=== PATIENT | male | born 1995 | race African-American/Black ===

== ENCOUNTER 2023-07-01 09:07 | Emergency (ER) | payer MEDICAID ==
[~2023-07-01] VITALS: Ht 177.8 cm; Wt 82.0 kg
[~2023-07-01 09:07] MED LIST: HYDR453.3 TOP; LIDO76.56 TP; PHEN51CR24 PR; POLY17PO43 PO
[2023-07-01 09:15] VITALS: O2SAT 100
[2023-07-01] MEDS ORDERED: PHEN51CR24 TP (10:09)
[2023-07-01] MEDS ORDERED: HYDROCODONE/ACETAMINOPHEN 5/325MG TABLET PO ONE (10:15)
[2023-07-01 11:11] VITALS: BP 160/70; PULSE 90; RESP 22; TEMP 97.8
== END 2023-07-01 11:12 | disposition home or self-care (01) ==
LOC: ER 09:07
DX: K64.9 Unspecified hemorrhoids (principal)
CPT/HCPCS: 99283

== ENCOUNTER 2024-01-22 11:53 | Emergency (ER) | payer MEDICAID ==
[~2024-01-22] VITALS: Ht 177.8 cm; Wt 84.0 kg
[~2024-01-22 11:53] MED LIST changes: +PHEN51CR24 TP
[2024-01-22 11:56] VITALS: O2SAT 98
[2024-01-22] MEDS: HYDROCODONE/ACETAMINOPHEN 5/325MG TABLET PO ONE (12:33)
[2024-01-22 12:56] LABS: CHLORIDE 106 mEq/L (98-107); POTASSIUM 4.2 mEq/L (3.5-5.1); SODIUM 139 mEq/L (136-145)
[2024-01-22 12:57] LABS: CARBON DIOXIDE 25 mEq/L (21-32)
[2024-01-22 12:58] LABS: CALCIUM 10.2 mg/dL (8.7-10.4)
[2024-01-22 13:02] LABS: CREATININE 1.2 mg/dL (0.6-1.3); GLUCOSE 101 mg/dL (70-105); UREA NITROGEN BLOOD 8 mg/dL (9-23)
[2024-01-22 13:03] LABS: BASOPHILS % 0.7 % (0.0-2.0); EOSINOPHILS % 0.6 % (0.0-5.0); HEMATOCRIT. 40.8 % (42.0-52.0); HEMOGLOBIN. 13.8 g/dL (14.0-18.0); LYMPHOCYTES % 22.9 % (20.0-50.0); MEAN CORPUSCULAR HEMOGLOBIN 29.5 pg (28.0-32.0); MEAN CORPUSCULAR HGB CONC 33.8 g/dL (31.0-37.0); MEAN CORPUSCULAR VOLUME 87.1 fL (80.0-94.0); MEAN PLATELET VOLUME 8.8 fl (7.4-10.4); MONOCYTES % 7.8 % (2.0-8.0); PLATELET 287 x1000/uL (130-400); RED BLOOD CELL COUNT 4.68 mill/uL (4.7-6.1); RED CELL DISTRIBUTION WIDTH 13.7 % (11.6-14.6); WHITE BLOOD COUNT 6.9 x1000/uL (4.5-11.0)
[2024-01-22] MEDS ORDERED: HYDR453.3 TOP (15:10)
[2024-01-22] MEDS ORDERED: PHEN51CR24 TP (15:10)
[2024-01-22] MEDS ORDERED: LIDO76.56 TP (15:10)
[2024-01-22 15:57] VITALS: BP 141/78; PULSE 58; RESP 12; TEMP 98.4
[2024-01-22] MEDS ORDERED: IBUP-2029 MT (15:58)
== END 2024-01-22 16:06 | disposition home or self-care (01) ==
LOC: ER 11:53
DX: K60.2 Anal fissure, unspecified (principal); I10 Essential (primary) hypertension
CPT/HCPCS: 36415; 74176; 80048; 85025; 86850; 86900; 99284